=== PATIENT | male | born 1950 | race Caucasian/White ===

== ENCOUNTER → 2024-02-01 07:42 | Outpatient (REF) | payer MEDICARE, OTHER, SELFPAY | LOC: DHCBC/DCA 07:42 | PROVIDERS: ATTENDING PHYSICIAN Internal Medicine Cardiovascular Disease; FAMILY PHYSICIAN Family Medicine | DX: I42.9 Cardiomyopathy, unspecified (principal); R06.02 Shortness of breath | CPT/HCPCS: 78452; 93017; A9500 ==

== ENCOUNTER → 2024-09-20 12:39 | Outpatient (REF) | payer MEDICARE, OTHER, SELFPAY | LOC: RCS 12:39 | PROVIDERS: ATTENDING PHYSICIAN Internal Medicine Cardiovascular Disease; FAMILY PHYSICIAN Family Medicine | DX: R00.1 Bradycardia, unspecified (principal); R06.02 Shortness of breath | CPT/HCPCS: 93306; Q9957 ==